=== PATIENT | male | born 1945 | race Caucasian/White ===

== ENCOUNTER → 2017-10-23 | Day surgery (SDC) | payer OTHER ==
[~2017-10-23] MED LIST: ACET-1256 PO; APIX1TAB3 PO; ASPI81TA28 PO; CARB25TA2 PO; COEN150C PO; FURO40TA3 PO; LPT/40 PO; METO25TA4 PO; MULT1CAP43 PO
--- NOTE | 2017-10-23 16:00 | Procedure Note ---
Procedure Note Date of Service Oct 23, 2017. Procedure Note After obtaining informed consent for the procedure, the patient was brought to the laboratory having nothing by mouth after midnight. The patient was identified in the laboratory, placed supine on the tilt table and remained supine for 15 minutes. The head of the tilt table was then raised to a 70 head up position where it remained for 30 minutes. The head of the bed was then placed supine and monitoring continued for an additional 15 minutes. During the procedure continuous pulse oximetry and electrocardiography was performed, noninvasive blood pressure monitoring was performed at five-minute intervals. Findings: The heart rate and blood pressure did not fall significantly during the study, however there was a trend to a drop in blood pressure for the first 30 minutes (after the waiting period the supine blood pressure was 131/80, after 30 minutes of upright tilt it was 109/74 which was the lowest blood pressure during the tilt) however at 35 minutes the blood pressure was back up to 120/77. Heart rate was atrially paced and unchanged from around 70 bpm. This is suggestive of orthostatic hypotension but it was not diagnostic and when the patient was placed supine after 35 minutes of upright tilt the blood pressure was virtually unchanged from the last upright blood pressure which would be inconsistent with orthostatic hypotension. Pulse oximetry was unchanged throughout the study. There was no significant change in blood pressure or heart rate when the patient was placed supine. Details of the blood pressure, heart rate and pulse oximetry data are presented on the procedure data sheet. Conclusions: Normal tilt test with no clear evidence of orthostasis or vasovagal physiology
== END | disposition home or self-care (01) ==
LOC: C.CATH 06:47
PROVIDERS: ATTEND Internal Medicine Cardiovascular Disease
DX: R42 Dizziness and giddiness (principal); G20 Parkinson's disease; G62.9 Polyneuropathy, unspecified; E78.5 Hyperlipidemia, unspecified; I48.91 Unspecified atrial fibrillation; I25.10 Atherosclerotic heart disease of native coronary artery without angina pectoris; I10 Essential (primary) hypertension; Z98.890 Other specified postprocedural states; Z85.46 Personal history of malignant neoplasm of prostate; Z87.442 Personal history of urinary calculi; Z86.79 Personal history of other diseases of the circulatory system; Z95.1 Presence of aortocoronary bypass graft; Z82.3 Family history of stroke; Z82.49 Family history of ischemic heart disease and other diseases of the circulatory system; Z84.1 Family history of disorders of kidney and ureter; Z80.6 Family history of leukemia; Z82.5 Family history of asthma and other chronic lower respiratory diseases; Z80.0 Family history of malignant neoplasm of digestive organs; Z80.7 Family history of other malignant neoplasms of lymphoid, hematopoietic and related tissues; Z79.899 Other long term (current) drug therapy; Z79.01 Long term (current) use of anticoagulants; Z91.030 Bee allergy status